=== PATIENT | female | born 1970 | race Native Hawaiian/Other Pacific Islander ===

== ENCOUNTER 2018-03-25 14:13 | Outpatient (CLI) | payer MEDICARE, OTHER ==
[~2018-03-25] VITALS: Ht 170.2 cm; Wt 106.3 kg
[~2018-03-25 14:13] MED LIST: ALDACTONE 100M100 MG PO; LASIX 40MG TABL40 MG PO
[2018-03-25] MEDS ORDERED: LASIX 40MG TABL40 MG PO (14:26)
[2018-03-25 14:27] VITALS: BP 131/85; PULSE 70
[2018-03-25] MEDS ORDERED: ALDACTONE 100M100 MG PO (14:27)
[2018-03-25 15:00] VITALS: BP 133/87; PULSE 62; TEMP 98.1
--- NOTE | 2018-03-25 16:00 | NUR ---
Drank some water, declined eating anything and walked to bathroom and back with steady gait. Ambulated to private car
== END 2018-03-25 16:05 | disposition home or self-care (01) ==
LOC: COL.RAD 14:13
DX: K74.60 Unspecified cirrhosis of liver (principal)

== ENCOUNTER → 2018-04-22 | Outpatient (CLI) | payer MEDICARE, OTHER ==
[~2018-04-22] VITALS: Ht 170.2 cm; Wt 103.9 kg
[~2018-04-22] MED LIST changes: +CONSTULOSE 20G/30ML PO
[2018-04-22 08:56] VITALS: BP 125/82; PULSE 62
[2018-04-22 09:38] VITALS: BP 137/84; PULSE 69
== END ==
LOC: COL.RAD 08:38
DX: K74.60 Unspecified cirrhosis of liver (principal)

== ENCOUNTER → 2018-05-05 | Outpatient (CLI) | payer MEDICARE, OTHER | LOC: COL.RAD 12:17 | DX: K74.60 Unspecified cirrhosis of liver (principal) ==

== ENCOUNTER → 2018-09-14 | Outpatient (CLI) | payer MEDICARE, OTHER ==
[~2018-09-14] VITALS: Ht 170.2 cm; Wt 102.6 kg
[~2018-09-14] MED LIST changes: +BARACLUDE1 MG PO; +DEMADEX 20MG20 M1 PO; +VITAMIN D 1001000 IU PO; +XIFAXAN550 MG PO
[2018-09-14 09:16] VITALS: BP 121/77; PULSE 59
[2018-09-14 10:00] VITALS: BP 124/83; PULSE 60
--- NOTE | 2018-09-14 10:53 | NUR ---
DR FENTON REMOVED 6000 CC ORANGEISH/ DARK YELLOWISG FLUID FROM ABDOMEN
== END ==
LOC: COL.RAD 08:50
DX: K74.60 Unspecified cirrhosis of liver (principal)

== ENCOUNTER → 2018-10-07 | Outpatient (CLI) | payer MEDICARE, OTHER ==
--- NOTE | 2018-10-02 08:16 | NUR ---
LMOM WITH INSTRUCTIONS AND TIME TO ARRIVE
[~2018-10-07] VITALS: Ht 170.2 cm; Wt 101.8 kg
[2018-10-07 08:09] VITALS: BP 142/84; PULSE 70
[2018-10-07 09:45] VITALS: BP 128/80; PULSE 61
== END ==
LOC: COL.RAD 08:02
DX: K74.60 Unspecified cirrhosis of liver (principal)

== ENCOUNTER → 2018-11-10 | Outpatient (CLI) | payer MEDICARE, OTHER ==
[~2018-11-10] VITALS: Ht 170.2 cm; Wt 102.3 kg
[2018-11-10 11:44] VITALS: BP 128/80; PULSE 75
[2018-11-10 12:50] VITALS: BP 135/80; PULSE 78
== END ==
LOC: COL.RAD 11:33
DX: K74.60 Unspecified cirrhosis of liver (principal)